=== PATIENT | female | born 1935 | race Hispanic/Latino ===

== ENCOUNTER → 2022-10-09 | Outpatient (CLI) | payer OTHER, MEDICARE | END | disposition home or self-care (01) | LOC: RAH 13:07 | PROVIDERS: ATTEND Nurse Practitioner Family | DX: R22.43 Localized swelling, mass and lump, lower limb, bilateral (principal); I70.201 Unspecified atherosclerosis of native arteries of extremities, right leg | CPT/HCPCS: 93925; 93970 ==

== ENCOUNTER → 2024-05-16 | Outpatient (CLI) | payer OTHER, MEDICARE ==
--- NOTE | 2024-05-18 08:12 | HMCSR ---
APPROVED REPORT Laterality: Bilateral Indications Dizziness and Vertigo Doppler Spectral Velocity Analysis PSV / EDVPSV / EDV ECA (R) 176 / cm/sECA (L) 101 / cm/s dICA (R) 151 / 29 cm/sdICA (L) 126 / 28 cm/s Clemente (R) 114 / 24 cm/smICA (L) 93 / 25 cm/s pICA (R) 56 / 12 cm/spICA (L) 66 / 9 cm/s dCCA (R) 92 / 11 cm/sdCCA (L) 85 / 13 cm/s mCCA (R) 102 / 15 cm/smCCA (L) 74 / 12 cm/s pCCA (R) 85 / 10 cm/spCCA (L) 92 / 20 cm/s Vert (R) 64 / cm/sVert (L) 56 / cm/s Subl. (R) 126 / cm/sSubl. (L) 154 / cm/s ICA/CCA 1.48ICA/CCA 1.37 Technologist Impression Mild plaque noted in the bilateral carotids. Right and left ICA appear patent, without hemodynamic significance. Bilateral vertebral arteries appear antegrade. Conclusion Mild plaque noted in the bilateral carotids. Right and left ICA appear patent, without hemodynamic significance. Bilateral vertebral arteries appear antegrade. Conclusion Mild plaque noted in the bilateral carotids. Right and left ICA appear patent, without hemodynamic significance. Bilateral vertebral arteries appear antegrade.
== END | disposition home or self-care (01) ==
LOC: SHCH 13:24
PROVIDERS: ATTEND Internal Medicine Cardiovascular Disease
DX: I65.23 Occlusion and stenosis of bilateral carotid arteries (principal)
CPT/HCPCS: 93880

== ENCOUNTER → 2024-08-04 | Outpatient (CLI) | payer OTHER, MEDICAID ==
--- NOTE | 2024-08-04 15:51 | HMCIMG ---
US ARTERIAL BILAT LOW EXT DUPL HISTORY: Lower extremity pain COMPARISON: 10/09/2022 TECHNIQUE: Bilateral lower extremity arterial Doppler ultrasound study was performed. FINDINGS: Normal triphasic and biphasic arterial waveforms are noted in the common femoral, deep femoral, superficial femoral, popliteal, posterior tibial and dorsalis pedal arteries. On the right, the peak systolic velocity of the common femoral artery is 254 cm/s, the proximal femoral artery is 121 cm/s, the mid femoral artery is 104 cm/s, the distal femoral artery is 104 cm/s, the proximal popliteal artery is 121 cm/s, the distal popliteal artery is 87 cm/s, the anterior tibial artery is 83 cm/s, the posterior tibial artery artery is 59 cm/s,and the dorsalis pedal artery is 51 cm/s. On the lateral, the peak systolic velocity of the common femoral artery is 178 cm/s, the proximal femoral artery is 130 cm/s, the mid femoral artery is 102 cm/s, the distal femoral artery is 91 cm/s, the proximal popliteal artery is 87 cm/s, the distal popliteal artery is 70 cm/s, the anterior tibial artery is 78 cm/s, the posterior tibial artery artery is 47 cm/s,and the dorsalis pedal artery is 46 cm/s. IMPRESSION: 1. Atherosclerotic disease. 2. Otherwise normal triphasic and biphasic arterial waveforms noted of the lower extremity artery system. There is elevated velocity in the right common femoral artery suggestive of stenosis.
--- NOTE | 2024-08-04 16:33 | HMCIMG ---
US VENOUS DOPPLER BILATERAL HISTORY: Lower extremity edema COMPARISON: None TECHNIQUE: Bilateral lower extremity venous Doppler ultrasound study was performed. FINDINGS: The common femoral, femoral, popliteal, and posterior tibial veins are visualized. Normal flow with augmentation and compressibilities are demonstrated. The greater saphenous veins are also seen and grossly patent. IMPRESSION: 1. No evidence of deep venous thrombosis is seen.
== END | disposition home or self-care (01) ==
LOC: RAH 13:05
PROVIDERS: ATTEND Nurse Practitioner Family
DX: I70.90 Unspecified atherosclerosis (principal); R60.0 Localized edema
CPT/HCPCS: 93925; 93970